=== PATIENT | male | born 1990 | race Caucasian/White ===

== ENCOUNTER 2021-03-01 02:29 | Emergency (ER) | payer MEDICAID ==
[~2021-03-01] VITALS: Ht 175.3 cm; Wt 68.1 kg
[2021-03-01] MEDS ORDERED: NO HOME MEDS (02:53)
[2021-03-01 03:13] LABS: BASOPHILS # (AUTO) 0.1 X10'3 (0-0.2); EOSINOPHILS # (AUTO) 0.1 X10'3 (0-0.9); EOSINOPHILS % (AUTO) 1.4 % (0-6); HEMATOCRIT 44.7 % (42.0-52.0); HEMOGLOBIN 15.3 g/dl (14.0-17.9); LYMPHOCYTES # (AUTO) 1.5 X10'3 (1.1-4.8); LYMPHOCYTES % (AUTO) 20.2 % (21-51); MEAN CORPUSCULAR HEMOGLOBIN 33.4 PG (27.0-31.0); MEAN CORPUSCULAR HGB CONC 34.2 g/dL (33.0-36.5); MEAN CORPUSCULAR VOLUME 97.6 FL (78-98); MEAN PLATELET VOLUME 9.1 FL (7.4-10.4); MONOCYTES # (AUTO) 0.5 X10'3 (0-0.9); MONOCYTES % (AUTO) 6.2 % (2-12); NEUTROPHILS # (AUTO) 5.4 X10'3 (1.8-7.7); NEUTROPHILS % (AUTO) 71.2 % (42-75); PLATELET COUNT 265 X10'3 (140-440); RED BLOOD COUNT 4.59 X10'6 (4.70-6.10); RED CELL DISTRIBUTION WIDTH 12.9 % (11.5-14.5); WHITE BLOOD COUNT 7.5 X10'3 (4.5-11.0)
--- NOTE | 2021-03-01 03:25 | NUR ---
PATIENT'S WALLET HAD 828.00 DOLLARS IT WAS VERIFIED BY RN AND REGISTRATON.
[2021-03-01 03:29] LABS: URINE AMPHETAMINE SCREEN NEGATIVE (Neg); URINE BARBITUATE SCREEN NEGATIVE (Neg); URINE BENZODIAZEPINES SCREEN NEGATIVE (Neg); URINE CANNABINOID SCREEN NEGATIVE (Neg); URINE COCAINE SCREEN NEGATIVE (Neg); URINE METHADONE SCREEN NEGATIVE (Neg); URINE OPIATE SCREEN NEGATIVE (Neg); URINE PHENCYCLIDINE SCREEN NEGATIVE (Neg)
[2021-03-01 03:31] LABS: ALANINE AMINOTRANSFERASE 43 U/L (12-78); ALBUMIN 4.5 G/DL (3.4-5.0); ALBUMIN/GLOBULIN RATIO 1.4 (1.1-1.5); ALKALINE PHOSPHATASE 88 IU/L (46-116); ANION GAP 9 (8-16); ASPARTATE AMINO TRANSFERASE 14 U/L (10-37); BILIRUBIN,TOTAL 0.3 MG/DL (0.1-1.0); BLOOD UREA NITROGEN 13 MG/DL (7-18); BUN/CREATININE RATIO 15.9 (5.4-32.0); CALCIUM 8.8 MG/DL (8.5-10.1); CHLORIDE 104 MMOL/L (99-107); CREATININE 0.82 MG/DL (0.60-1.10); GLUCOSE 105 MG/DL (70-104); POTASSIUM 3.7 MMOL/L (3.5-5.1); SODIUM 142 MMOL/L (135-145); TOTAL PROTEIN 7.8 G/DL (6.4-8.2); eGFR > 90 ML/MIN
[2021-03-01 03:42] LABS: ETHANOL 0.162 GM/DL (0.0-0.010)
[2021-03-01 03:53] LABS: ACETAMINOPHEN < 2.0 UG/ML (10-30)
--- NOTE | 2021-03-01 15:00 | NUR ---
Report received per Mally RN to this RN. Pt calm, resting. No needs at this time. Pt given water pitcher
--- NOTE | 2021-03-01 18:11 | NUR ---
Pt eating dinner at bedside. NAD
--- NOTE | 2021-03-01 19:07 | NUR ---
[facility] is interviewing the patient
--- NOTE | 2021-03-01 19:17 | NUR ---
One to one with the patient to assess for self harm risk. The patient appeared down and stated that he has chronic suicidal thoughts and he continues to have suicidal thoughts at this time. Psychotic symptoms are denied.
--- NOTE | 2021-03-01 21:00 | NUR ---
THe patient is resting on her bed
--- NOTE | 2021-03-01 23:04 | NUR ---
The patient appears to be sleeping
--- NOTE | 2021-03-02 00:14 | NUR ---
Report to [facility]
--- NOTE | 2021-03-02 01:10 | NUR ---
The patient appears to be sleeping
[2021-03-02 02:41] LABS: CLARITY,URINE CLOUDY (Clear); COLOR,URINE YELLOW (Yellow); GLUCOSE, URINE NEGATIVE (Neg); KETONES,URINE NEGATIVE (Neg); PH,URINE 7.5 (4.8-8.0); PROTEIN,URINE NEGATIVE (Neg); UA COLLECTION TYPE VOIDED
[2021-03-02 02:42] LABS: LEUKOCYTE ESTERASE ,URINE NEGATIVE (Neg); NITRITES, URINE NEGATIVE (Neg); OCCULT BLOOD,URINE NEGATIVE (Neg); UROBILINOGEN,URINE 0.2 E.U/dL (0.2-1.0)
[2021-03-02 02:47] LABS: AMORPHOUS PHOSPHATES 3+; BACTERIA,URINE NONE SEEN /HPF (Neg); MUCUS STRANDS FEW /LPF (Neg); RBC,URINE 0-2 /HPF (0-2); SQUAMOUS EPITHELIAL CELL,UR NONE SEEN /LPF (FEW); WBC,URINE 0-4 /HPF (0-4)
--- NOTE | 2021-03-02 02:50 | NUR ---
UA results faxed to [facility]
--- NOTE | 2021-03-02 04:36 | NUR ---
The patient appears to be sleeping
--- NOTE | 2021-03-02 07:00 | NUR ---
Pt sleeping restfully, respirations even and unlabored.
--- NOTE | 2021-03-02 09:06 | NUR ---
At bedside with pt to assess for self-harm behaviors. Pt ate 100% of his breakfast. Pt is calm and cooperative. Pt has a linear thought process. Denies A/VH. Pt denies suicidal thoughts at this time. Pt r/t previous SI to his "drinking." States ETOH exacerbates his symptoms. Pt has no previous SA. Has a support system that includes his dad and granparents, both that live locally.
--- NOTE | 2021-03-02 11:05 | NUR ---
Pt resting comfortably, respirations even and unlabored.
--- NOTE | 2021-03-02 13:06 | NUR ---
Pt awake sitting on side of bed eating lunch. Calm.
--- NOTE | 2021-03-02 14:53 | NUR ---
Pt sleeping comfortably. Pt ate 100% of his lunch. Pt remains calm.
--- NOTE | 2021-03-02 14:56 | NUR ---
Shanta Cuello - pt's grandmother called. She said she went to pick him up for dinner last night from work and was told he went to the hospital. She said pt could come live with her.
[2021-03-02] MEDS ORDERED: traZODone 50mg tablet PO PRN (18:50)
--- NOTE | 2021-03-02 19:15 | NUR ---
One to one with the patient to assess severity of depressive symptoms and self harm risk. The patient is very pleasant. He stated that currently his anxiety was low. When asked how his mood was he stated that he felt "blah" He currently denies that he is suicidal and that he does want to live. He stated that suicide would be a terrible thing to do to his family. He stated that he really did not have any set plans for his future. He denies psychotic symptoms or thoughts to harm risk.
[2021-03-02] MEDS ORDERED: Melatonin 3mg tablet PO SCH (21:00)
--- NOTE | 2021-03-02 21:06 | NUR ---
The patient appears to be sleeping
--- NOTE | 2021-03-02 22:53 | NUR ---
The patient appears to be sleeping
--- NOTE | 2021-03-03 00:49 | NUR ---
The patient appears to be sleeping
--- NOTE | 2021-03-03 02:57 | NUR ---
The patient appears to be sleeping
--- NOTE | 2021-03-03 04:34 | NUR ---
The patient appears to be sleeping
--- NOTE | 2021-03-03 07:00 | NUR ---
Received patient resting comfortably, respirations even and unlabored.
--- NOTE | 2021-03-03 09:09 | NUR ---
Pt sitting up in bed. Finished 100% of his breakfast. Pt continues to deny suicidal thoughts. Pt states he is bored, which is why "I am sleeping all the time." Pt his sucidal outburst to his ETOH. Pt reports "drinking a lot." Pt states he regrets what happened "I am not going to drink for a long time." Pt states he lives with 2 other roommates. Denies any psychotic symptoms.
--- NOTE | 2021-03-03 11:07 | NUR ---
Pt resting in bed comfortably. Pt was given hygiene bucket and clean scrubs. Pt was accepted at [facility] [place]. Pt continues to be calm/cooperative.
--- NOTE | 2021-03-03 14:07 | NUR ---
Pt sitting in room calm and quiet. Pt ate 100% lunch.
--- NOTE | 2021-03-03 14:30 | NUR ---
Pt awake sitting on bed, pt presents with a constricted affect. Difficult to get pt's feelings on discharge. Pt states "I'm okay with it." Pt denies suicidal thoughts.
--- NOTE | 2021-03-03 16:17 | NUR ---
DISCHARGE NOTE: Pt was transferred to [facility] [place] and left unit at 1530. Pt ambulated independently to lobby with [facility] staff and security as per protocol. Pt was A&Ox4, calm and cooperative. Pt left with all personal belongings. Pt appeared a little nervous, but was cooperative with discharge plan.
[2021-03-03 16:28] VITALS: BP 113/74
== END 2021-03-03 16:34 ==
LOC: ER 02:30
DX: R45.851 Suicidal ideations (principal); Z20.822 Contact with and (suspected) exposure to COVID-19
CPT/HCPCS: 36415; 80053; 80305; 80320; 80329; 81001; 84443; 85025; 87635; 99285; C9803